=== PATIENT | male | born 1945 | race Asian ===

== ENCOUNTER 2024-05-29 11:28 | Inpatient (IN) | payer OTHER ==
[~2024-05-29] VITALS: Ht 165.1 cm; Wt 60.8 kg
[2024-05-29 12:46] LABS: BASOPHILS % (AUTO) 1.2 % (0.0-2.0); EOSINOPHILS % (AUTO) 2.6 % (1.0-6.0); HEMATOCRIT 47.7 % (41-53); LYMPHOCYTES # (AUTO) 0.9 K/uL (1.0-4.8); LYMPHOCYTES % (AUTO) 19.9 % (22.0-44.0); MEAN CORPUSCULAR HEMOGLOBIN 32.7 pg (26.0-34.0); MEAN CORPUSCULAR HGB CONC 33.5 G/dL (31.0-37.0); MEAN CORPUSCULAR VOLUME 98 fL (80-100); MONOCYTES # (AUTO) 0.4 K/uL (0.1-1.0); MONOCYTES % (AUTO) 7.9 % (2.0-9.0); NEUTROPHILS # (AUTO) 3.1 K/uL (1.8-7.7); NEUTROPHILS % (AUTO) 68.4 % (40.0-70.0); PLATELET COUNT (AUTO) 157 K/uL (150-450); RED BLOOD CELL COUNT(AUTO) 4.89 MIL/uL (4.50-5.90); WHITE BLOOD COUNT (AUTO) 4.6 K/uL (4.5-11.0)
[2024-05-29 12:58] LABS: PROTHROMBIN TIME 10.2 SEC (9.4-11.6)
[2024-05-29] MEDS ORDERED: SODIUM CHLORIDE 0.9% 100 ML ONE (13:04)
[2024-05-29] MEDS ORDERED: IOHEXOL 350 MG/ML 100 ML VIAL ONE (13:04)
[2024-05-29 13:06] LABS: LACTIC ACID 1.8 mmol/L (0.4-2.0)
[2024-05-29 13:15] LABS: ANION GAP 3 mmol/L (8-16); CALCIUM, TOTAL 9.5 mg/dL (8.8-10.5); CARBON DIOXIDE 33 mmol/L (22-29); CHLORIDE 101 mmol/L (98-107); CREATININE 1.26 mg/dL (0.60-1.30); GLOMERULAR FILTR. RATE CALC 55 mL/min (>60); GLUCOSE,RANDOM 125 mg/dL (70-110); POTASSIUM 4.3 mmol/L (3.5-5.1); SODIUM SERUM 137 mmol/L (136-145); UREA NITROGEN, BLOOD 26 mg/dL (7-18)
[2024-05-29 13:23] LABS: LIPASE 64 U/L (16-77); TROPONIN I-HIGH SENSITIVITY 17 ng/L (<76)
[2024-05-29 14:34] LABS: B-TYPE NATRIURETIC PEPTIDE 11 pg/mL (0-100)
[2024-05-29] MEDS: ASPIRIN 325 MG TABLET PO ONE (15:11)
[2024-05-29] MEDS: AmLODIPine BESYLATE 5 MG TABLET PO ONE (15:11)
[2024-05-29] MEDS: HydrALAZINE HCL 20 MG/ML VIAL IVP ONE (15:11)
[2024-05-29] MEDS: CLOPIDOGREL BISULFATE 75 MG TABLET PO ONE (15:11)
[2024-05-29] MEDS: AmLODIPine BESYLATE 5 MG TABLET PO SCH (15:37)
[2024-05-29] MEDS ORDERED: MAGNESIUM HYDROXIDE SUSPENSION 30 ML UDCUP PO PRN (15:45)
[2024-05-29] MEDS ORDERED: HydrALAZINE HCL 20 MG/ML VIAL IVP PRN (15:45)
[2024-05-29] MEDS ORDERED: ACETAMINOPHEN 325 MG TABLET PO PRN (15:45)
[2024-05-29 18:00] VITALS: BP 146/79; PULSE 86; RESP 18; TEMP 98; O2SAT 99
[2024-05-29 20:26] VITALS: BP 148/78; PULSE 116; RESP 19; TEMP 98.1; O2SAT 92
[2024-05-29] MEDS: DOCUSATE SODIUM 100 MG CAPSULE PO SCH (21:00)
[2024-05-30 00:30] VITALS: BP 138/51; PULSE 93; RESP 18; TEMP 98.3; O2SAT 95
[2024-05-30 04:35] VITALS: BP 135/74; PULSE 81; RESP 17; TEMP 98.2; O2SAT 95
[2024-05-30 06:48] LABS: BASOPHILS % (AUTO) 0.5 % (0.0-2.0); EOSINOPHILS % (AUTO) 2.9 % (1.0-6.0); HEMATOCRIT 45.3 % (41-53); HEMOGLOBIN 15.3 g/dL (13.5-17.5); LYMPHOCYTES # (AUTO) 1.5 K/uL (1.0-4.8); LYMPHOCYTES % (AUTO) 24.2 % (22.0-44.0); MEAN CORPUSCULAR HEMOGLOBIN 32.6 pg (26.0-34.0); MEAN CORPUSCULAR HGB CONC 33.7 G/dL (31.0-37.0); MEAN CORPUSCULAR VOLUME 97 fL (80-100); MONOCYTES # (AUTO) 0.6 K/uL (0.1-1.0); MONOCYTES % (AUTO) 9.8 % (2.0-9.0); NEUTROPHILS # (AUTO) 3.9 K/uL (1.8-7.7); NEUTROPHILS % (AUTO) 62.6 % (40.0-70.0); PLATELET COUNT (AUTO) 157 K/uL (150-450); RED BLOOD CELL COUNT(AUTO) 4.68 MIL/uL (4.50-5.90); WHITE BLOOD COUNT (AUTO) 6.2 K/uL (4.5-11.0)
[2024-05-30 07:17] LABS: CALCIUM, TOTAL 9.2 mg/dL (8.8-10.5); CREATININE 1.3 mg/dL (0.60-1.30); POTASSIUM 4.2 mmol/L (3.5-5.1)
[2024-05-30] MEDS: AmLODIPine BESYLATE 5 MG TABLET PO SCH (08:50)
[2024-05-30] MEDS: PANTOPRAZOLE SODIUM 40 MG DR TABLET PO SCH (08:50)
[2024-05-30 09:21] VITALS: BP 149/85; PULSE 77; RESP 18; TEMP 98.2; O2SAT 96
[2024-05-30 12:20] VITALS: BP 148/72; PULSE 89; RESP 18; TEMP 97.7; O2SAT 96
[2024-05-30] MEDS: ASPIRIN 81 MG CHEWABLE TABLET PO SCH (14:19)
[2024-05-30] MEDS: ATORVASTATIN CALCIUM 20 MG TABLET PO SCH (14:19)
[2024-05-30 16:24] VITALS: BP 146/73; PULSE 80; RESP 18; TEMP 98.1; O2SAT 97
[2024-05-30 20:34] VITALS: BP 134/71; PULSE 78; RESP 19; TEMP 97.7; O2SAT 98
[2024-05-31] VITALS (7 sets, daily range): BP systolic 110–146; BP diastolic 62–86; PULSE 65–80; RESP 16–19; TEMP 97.5–98.3; O2SAT 95–98
[2024-05-31 06:50] LABS: BASOPHILS % (AUTO) 0.5 % (0.0-2.0); HEMATOCRIT 45.9 % (41-53); HEMOGLOBIN 15.4 g/dL (13.5-17.5); LYMPHOCYTES # (AUTO) 1.5 K/uL (1.0-4.8); LYMPHOCYTES % (AUTO) 26.9 % (22.0-44.0); MEAN CORPUSCULAR HEMOGLOBIN 32.7 pg (26.0-34.0); MEAN CORPUSCULAR HGB CONC 33.6 G/dL (31.0-37.0); MEAN CORPUSCULAR VOLUME 97 fL (80-100); MONOCYTES # (AUTO) 0.5 K/uL (0.1-1.0); MONOCYTES % (AUTO) 9.7 % (2.0-9.0); NEUTROPHILS # (AUTO) 3.2 K/uL (1.8-7.7); NEUTROPHILS % (AUTO) 58.9 % (40.0-70.0); PLATELET COUNT (AUTO) 160 K/uL (150-450); RED BLOOD CELL COUNT(AUTO) 4.71 MIL/uL (4.50-5.90); RED CELL DISTRIBUTION WIDTH 15.2 % (11.5-14.5); WHITE BLOOD COUNT (AUTO) 5.4 K/uL (4.5-11.0)
[2024-05-31 07:03] LABS: CALCIUM, TOTAL 9.2 mg/dL (8.8-10.5); CREATININE 1.34 mg/dL (0.60-1.30); POTASSIUM 4.3 mmol/L (3.5-5.1)
[2024-05-31] MEDS ORDERED: ATOR20TA65 PO (12:07)
[2024-05-31] MEDS ORDERED: CLOP75TA60 PO (12:07)
[2024-05-31] MEDS ORDERED: ASPI-1450 PO (12:07)
[2024-05-31] MEDS ORDERED: AMLO-257 PO (12:07)
[2024-06-01 06:28] VITALS: BP 130/76; PULSE 78; RESP 16; TEMP 97.9; O2SAT 93
[2024-06-01 08:00] VITALS: BP 137/72; PULSE 69; RESP 18; TEMP 97.4; O2SAT 99
[2024-06-01] MEDS: CLOPIDOGREL BISULFATE 75 MG TABLET PO SCH (08:32)
[2024-06-01 12:00] VITALS: BP 134/66; PULSE 69; RESP 18; TEMP 97.8; O2SAT 98
== END 2024-06-01 17:30 | disposition home health service (06) | DRG 66 ==
LOC: EMS 11:32 → EDH 15:39 → 5S 17:58
PROVIDERS: ADMIT Internal Medicine; ATTEND Internal Medicine
DX: I63.9 Cerebral infarction, unspecified (principal); I10 Essential (primary) hypertension; I16.0 Hypertensive urgency; Z79.02 Long term (current) use of antithrombotics/antiplatelets; Z79.82 Long term (current) use of aspirin; Z79.899 Other long term (current) drug therapy
CPT/HCPCS: 70450; 70551; 71045; 74177; 80048; 83605; 83690; 83880; 84484; 85025; 85610; 92610; 93005; 93306; 93880; 96374; 97110; 97112; 97116; 97163; 97166; 97535; 99291; J0360; J7050; 36415-L1; 36415-TC

== ENCOUNTER 2025-02-17 16:50 | Emergency (ER) | payer OTHER ==
[~2025-02-17] VITALS: Ht 175.3 cm; Wt 75.0 kg
[~2025-02-17 16:50] MED LIST: AMLO-257 PO; ASPI-1450 PO; ATOR20TA65 PO; CLOP75TA83 PO
[2025-02-17 17:01] VITALS: BP 173/88; PULSE 88; RESP 18; TEMP 98.2; O2SAT 99
[2025-02-17] MEDS ORDERED: ACET-66 PO (18:20)
[2025-02-17] MEDS: ACETAMINOPHEN 500 MG TABLET PO ONE (18:29)
== END 2025-02-17 18:35 | disposition home or self-care (01) ==
LOC: EMS 16:50
DX: M19.041 Primary osteoarthritis, right hand (principal); M25.532 Pain in left wrist; E78.00 Pure hypercholesterolemia, unspecified; I10 Essential (primary) hypertension; Z79.02 Long term (current) use of antithrombotics/antiplatelets; Z79.82 Long term (current) use of aspirin; Z79.899 Other long term (current) drug therapy
CPT/HCPCS: 82962; 99284